=== PATIENT | female | born 1985 | race Caucasian/White ===

== ENCOUNTER 2021-01-02 08:22 | Emergency (ER) | payer OTHER, SELFPAY ==
[2021-01-02 08:26] VITALS: BP 129/86; PULSE 59; RESP 16; TEMP 36.5; O2SAT 93; BMI 28.0
--- NOTE | 2021-01-02 08:38 | W.ED.ABDPA2 ---
Documented by User: SHAHID Roth 01/02/21 13:23 HPI - Abdominal Pain General: Chief Complaint: Abdominal Pain Stated Complaint: LUQ ABD PAIN W/ N/V Time Seen by Provider: 01/02/21 08:31 Source: patient Mode of arrival: ambulatory Limitations: no limitations History of Present Illness: HPI narrative: Patient is a 35-year-old female who presents to ED today with a complaint of left-sided abdominal pain. Patient tells me she woke up around 530 this morning with pain and initially thought it could be secondary to her menstrual cycle however secondary to the amount of discomfort she knew it was not. Did have small amount of brown discharge. Reports abnormal cycles secondary to PCOS. She has felt nauseous and has had a few episodes of vomiting. She denies flank pain. She is not having any urinary symptoms. Reporting normal bowel movements. She states there is a chance of . Reports URI symptoms with low grade fevers over the past few days. Tested for COVID recently and was negative. Previous abdominal surgeries include a gastric sleeve performed in [facility]. MD elicited complaint: abdominal pain Pertinent past history: none Onset (ago): hour(s) Pain Consistency: constant Location: LUQ and LLQ Severity: severe Quality: sharp Relieving factors: other (lying flat) Associated Symptoms: Reports fever(s), nausea and vomiting; Denies change in stool character, chills, diarrhea and dysuria Treatments prior to arrival: other (tylenol) Review of Systems Const: Reports: fever(s); Denies: chills, body aches, fatigue or malaise Card: Denies: chest pain Resp: Denies: dyspnea GI: Reports: abdominal pain, nausea and vomiting; Denies: diarrhea or change in stool character : Denies: flank pain, difficulty voiding, dysuria, urinary frequency or urinary urgency Musc: Denies: neck pain, back pain, extremity pain or joint pain Skin/Breast: Denies: rash Neuro: Denies: headache(s) PFS ED PFSH: Medical History PCOS (polycystic ovarian syndrome) Surgical History Bariatric surgery status Family History Father Healthy adult Mother Healthy adult Social History Smoking and tobacco status: current some day smoker Alcohol intake: never Marital status: Current occupational status: employed History of recent travel: No Physical Exam Const: COMMON NORMALS: no acute distress, patient oriented x3, no limitations and alert GENERAL APPEARANCE: cooperative ORIENTATION/CONSCIOUSNESS: Yes awake, Yes oriented to person, Yes oriented to place and Yes oriented to time HENMT: COMMON NORMALS: normocephalic and atraumatic HEAD & SCALP: normocephalic and atraumatic Resp: COMMON NORMALS: normal respiratory effort and clear to auscultation bilaterally AUSCULTATION: clear to auscultation bilaterally Cardio: COMMON NORMALS: regular rate and regular rhythm RATE: regular rate RHYTHM: regular rhythm GI: COMMON NORMALS: Normal to inspection, nondistended, normoactive bowel sounds present, Soft to palpation, No hepatosplenomegaly present and no masses INSPECTION: Yes normal to inspection AUSCULTATION: Yes normoactive bowel sounds PALPATION: Yes Soft to palpation, Yes Tenderness to palpation present (GI) (L mid abdomen/LLQ), No Guarding due to palpation present (GI), No Rigid due to palpation and Yes No hepatosplenomegaly present : COMMON NORMALS: Yes no CVA tenderness BLADDER/KIDNEY EXAM: Yes no CVA tenderness Back/Pelvis: COMMON NORMALS: no CVA tenderness Extremity: COMMON NORMALS: normal to inspection Neuro: COMMON NORMALS: patient oriented x3 SENSORIUM/ORIENTATION: Yes alert, Yes oriented to person, Yes oriented to place and Yes oriented to time Skin: COMMON NORMALS: no rashes or lesions noted GENERAL SKIN EXAM: no rashes or lesions noted Course Consultations: Consultation #1: Dr. Shanae POPE (risk of ovarian malignancy algorithm); stated torsion can be ruled out; she would follow patient in office Vital Signs: Vital signs: Vital Signs Temperature 97.7 F 01/02/21 09:16 Pulse Rate 71 01/02/21 12:16 Respiratory Rate 16 01/02/21 12:16 Blood Pressure 118/91 01/02/21 12:16 Pulse Oximetry 94 01/02/21 12:16 MDM - Abdominal Pain MDM Narrative: Medical decision making narrative: Patient was found to have a 2 mm left distal ureter stone that would explain her acute onset left-sided discomfort. UA showing hematuria but no infection. Vital signs are stable. Pain was difficult to initially control with IV narcotic pain medications while we awaited CT findings/US pelvis. She was eventually given IV toradol with good relief of pain. US pelvis showing a very large right adnexa mass. There was no definitive vascularity seen therefore torsion could not entirely be excluded. Patient has absolutely no pain to her right side. CT imaging confirms the very large mass. Radiologist stated there was no secondary findings of torsion. Her pedicle was not twisted. This was discussed with Dr. Akbar who stated torsion could be ruled out with these findings and her absence of pain. She did request a miscellaneous test (NIKO) and she would follow up with patient in office. Patient will be placed on pain meds, nausea meds, Flomax for the distal ureter stone. We will have case management get her set up with urology regarding this. Strict return to ED precautions given. Lab Data: Labs: Lab Results 01/02/21 01/02/21 01/02/21 08:45 08:45 09:05 WBC 9.4 10^3/uL 10^3/ uL (4.0-10.0) RBC 5.03 10^6/uL 10^6 /uL (4.1-5.3) Hgb 15.6 g/dL H g/dL (11.5-15.3) Hct 47.6 % H % (37.0-47.0) MCV 94.6 fl fl (81-99) MCH 31.0 pg pg (28.0-34.0) MCHC 32.8 g/dL g/dL (30.0-36.0) RDW 12.4 % % (12.1-15.1) Plt Count 265 10^3/cmm 10^3 /cmm (130-400) MPV 10.2 fL fL (7.4-10.4) Neut % (Auto) 70.2 % % Lymph % (Auto) 20.7 % % [place] % (Auto) 6.5 % % Eos % (Auto) 1.1 % % Baso % (Auto) 0.5 % % Neut # (Auto) 6.60 10^3/uL 10^3 /uL (1.8-7.7) Lymph # (Auto) 1.9 10^3/uL 10^3/ uL (0.8-4.8) [place] # (Auto) 0.6 10^3/uL 10^3/ uL (0.2-0.9) Eos # (Auto) 0.1 10^3/uL 10^3/ uL (0.0-0.8) Baso # (Auto) 0.1 10^3/uL 10^3/ uL (0.0-0.1) Nucleated RBC % (a uto) 0 % % Nucleated RBCs # 0.0 /100WBC /100W BC Sodium Potassium Chloride Carbon Dioxide Anion Gap BUN Creatinine GFR Calculation Glucose Calculated Osmolal ity Calcium Total Bilirubin AST ALT Alkaline Phosphata se Total Protein Albumin Globulin Lipase HCG, Qual Urine Color Yellow (Yellow) Urine Appearance Clear (CLEAR) Urine pH 5 (5-7) Ur Specific Gravit y 1.025 (1.005-1.030) Urine Protein Trace (Negative) Urine Glucose (UA) Norm (Normal) Urine Ketones 1+ H (Negative) Urine Blood 3+ H (Negative) Urine Nitrate Negative (Negative) Urine Bilirubin 1+ H (Negative) Urine Urobilinogen 1 mg/dL H mg/dL (Negative) Ur Leukocyte Eladia ase Negative (Negative) Urine RBC 0-4 /hpf H /hpf (0-2) Urine WBC 0-4 /hpf H /hpf (0-5) Ur Squamous Epith Cells 0-4 /hpf H /hpf (0-5) Amorphous Sediment Not Reportable Urine Bacteria 1+ /hpf H /hpf (NONE) Urine Mucus Trace /hpf /hpf Urine HCG, Qual Negative (Negative) 01/02/21 01/02/21 09:05 09:05 WBC RBC Hgb Hct MCV MCH MCHC RDW Plt Count MPV Neut % (Auto) Lymph % (Auto) [place] % (Auto) Eos % (Auto) Baso % (Auto) Neut # (Auto) Lymph # (Auto) [place] # (Auto) Eos # (Auto) Baso # (Auto) Nucleated RBC % (a uto) Nucleated RBCs # Sodium 140 mmol/L mmol/L (136-145) Potassium 3.6 mmol/L mmol/L (3.5-5.1) Chloride 102 mmol/L mmol/L (98-107) Carbon Dioxide 25 mmol/L mmol/L (22-29) Anion Gap 16.6 (5-19) BUN 7 mg/dL mg/dL (6-20) Creatinine 0.8 mg/dL mg/dL (0.5-0.9) GFR Calculation 82.6 mL/min L mL/ min (90-130) Glucose 103 mg/dL mg/dL (65-115) Calculated Osmolal ity 288 mOsm/kg mOsm/ kg (285-295) Calcium 9.3 mg/dL mg/dL (8.5-10.5) Total Bilirubin 0.3 mg/dL mg/dL (0.15-1.2) AST 21 U/L U/L (0-32) ALT 20 U/L U/L (0-33) Alkaline Phosphata se 67 IU/L IU/L (35-105) Total Protein 8.2 g/dL g/dL (6.6-8.7) Albumin 4.4 g/dL g/dL (3.5-5.2) Globulin 3.8 g/dL g/dL (1.3-4.6) Lipase 18 U/L U/L (13-60) HCG, Qual Cancelled Urine Color Urine Appearance Urine pH Ur Specific Gravit y Urine Protein Urine Glucose (UA) Urine Ketones Urine Blood Urine Nitrate Urine Bilirubin Urine Urobilinogen Ur Leukocyte Eladia ase Urine RBC Urine WBC Ur Squamous Epith Cells Amorphous Sediment Urine Bacteria Urine Mucus Urine HCG, Qual Imaging Data ^: US pelvis: Radiologist's impression: [address] [id number] ReportSigned Patient: Josy Bautista JUnfrank #: [id number]: 1985Acct#:[id number]/Sex: 35 / FADM Date: 01/02/21Loc: ERRoom/Bed:Attending Dr: Ordering Provider/Ordering MD: Kacie Baca Date of Service: 01/02/21 Procedure(s): US pelvic with transvaginal Accession Number(s): [id number] Report Number: [id number] WS: [id number] TRANSABDOMINAL PELVIC AND TRANSVAGINAL PELVIC ULTRASOUND HISTORY: L lower pelvic pain; hx of PCOS COMPARISON: None available. Uterus: 8.2 cm x 5.0 cm x 4.4 cm. Normal size anteverted uterus. No fibroid or mass. Endometrium: 1.5 cm. Mildly thickened endometrium. Right ovary: 4.4 cm x 4.2 cm x 2.7 cm. Normal-appearing ovary is not identified. There are multiple cysts and complex cysts in the RIGHT adnexa. There is a very thin rim of what appears to be ovarian tissue. Cannot identify any vascularity. The largest complex cyst in the RIGHT adnexa measures 6.5 x 5.2 x 6.0 cm. Left ovary: 3.5 cm x 3.5 cm x 2.2 cm. Normal size ovary. There is normal vascularity. No free fluid. US/US pelvic with transvaginal IMPRESSION: 1. Multiple large complex cysts within the RIGHT adnexa with minimal ovarian tissue. No definite vascularity is identified within the ovarian tissue. Cannot exclude ovarian torsion although the ovary is not very well visualized. 2. Normal LEFT ovary. 3. No free fluid. Dictated By:Tori Granda DOSigned By:Tori Granda DOSigned Date/Time:01/02/21 1035DD/ 1029 CT Abd/Pel: Radiologist's impression: [address] [id number] Scan ReportSigned Patient: Josy Bautista #: [id number]: 1985Acct#:[id number]/Sex: 35 / FADM Date: 01/02/21Loc: ERRoom/Bed:Attending Dr: Ordering Provider/Ordering MD: Kacie Baca Date of Service: 01/02/21 Procedure(s): CT abdomen pelvis w con* [id number] Accession Number(s): [id number] Report Number: [id number] WS: [id number] CT ABDOMEN AND PELVIS WITH CONTRAST HISTORY: L sided abdominal pain TECHNIQUE: Imaging performed of the abdomen and pelvis with IV contrast. Single phase imaging of the abdomen. Coronal and sagittal reformats are submitted. All CT scans at [facility] use at least one of these dose optimization techniques: automated exposure control; mA and/or kV adjustment per patient size (includes targeted exams where dose is matched to clinical indication); or iterative reconstruction. IV CONTRAST: Omnipaque 350; 95 mL IV. Oral contrast: No DLP: 3612.26 mGy.cm COMPARISON: Pelvic ultrasound 01/02/2021 Lower thorax: Lung bases are clear. Heart is normal size. Moderate-sized hiatal hernia. Prior gastric bypass. Liver/biliary system: Normal size with no intrahepatic dilatation. Gallbladder: Status post cholecystectomy. Pancreas: Normal size pancreas and pancreatic duct. No adjacent inflammation. Spleen: Normal size spleen. No mass or infarct. Adrenal glands: Normal. Right kidney: Normal. Left kidney: Delayed excretion from the LEFT kidney. There is very mild dilatation of the LEFT renal pelvis and ureter secondary to a 2 mm stone in the distal ureter. Aorta: Normal. Lymphadenopathy: None. Free fluid: None. GI tract: Normal appendix. No obstruction. Abdominal wall: Unremarkable abdominal wall. No hernia. Pelvis: There is a very large multi lobulated cystic mass in the RIGHT adnexa extending across the midline posterior to the uterus. This collection measures 9.2 x 6.0 x 8.1 cm. There are several septations but no adjacent free fluid or inflammation. Small amount of the normal ovary is identified. There is enhancement within the wall. No secondary findings of torsion. The pedicle is not twisted. Normal endometrium. Normal LEFT ovary. Bones: Unremarkable. CT/CT abdomen pelvis w con* [id number] IMPRESSION: 1. Mild delayed excretion from the LEFT kidney with mild LEFT hydroureteronephrosis. There is a 2 mm calcification in the distal LEFT ureter causing the obstruction. 2. Large complex cystic mass in the RIGHT adnexa crossing the midline posterior to the uterus. This multi cystic collection associated with the ovary measures 9.2 x 6.0 x 8.1 cm. No adjacent free fluid. There is no torsion at this time. 3. Moderate size hiatal hernia. Dictated By:Tori Granda DOSigned By:Tori Granda DOSigned Date/Time:01/02/21 1052DD/ 1036 Discharge Plan Discharge Patient Disposition: Home Clinical Impression: Calculus of distal left ureter, Complex cyst of right ovary Condition: Stable Prescriptions: New Zofran 4 mg tablet 4 mg PO Q6H PRN (Reason: nausea and vomiting) Qty: 14 RF: 0 Flomax 0.4 mg capsule 0.4 mg PO DAILY Qty: 10 RF: 0 hydrocodone-acetaminophen 7.5-325 mg tablet 1 tab PO Q4H PRN (Reason: pain) Qty: 20 RF: 0 ketorolac 10 mg tablet 10 mg PO Q6H PRN (Reason: pain) 3 Days Qty: 12 RF: 0 Discharge Orders: Discharge ED (Routine); Ordered 01/02/21 Ordered By: Kacie Baca Patient Instructions: Ureteral Stones (ED), Opioid Safety Activity Restrictions/Additional Instructions: [facility] is committed to fighting the nationwide opiate epidemic. We are providing ALL patients with information regarding opiate safety. If you received opiate pain medication during your stay or if you received a prescription for opiate pain medication-please review this handout. If not, you may disregard. Thank you. As we discussed take your pain meds as scheduled to attempt to stay ahead of your discomfort. Take nausea meds as scheduled as well as the pain medication can contribute to this. Push fluids throughout the day. Strain urine. Case management will set you up with Dr. Radford's/urology office for follow-up regarding your ureter stone. As we discussed they will also set you up with Dr. Akbar at [facility] for the right ovarian cystic mass that was found. You need to return to the emergency department if pain cannot be controlled at home, repetitive episodes of vomiting, fevers greater than 100.4, or any other concerns you may have. I hope you begin to feel better soon. Coding Level of Care Code ED Water System Operator for Chg Fwd Exam Comprehensive Documented by User: Kaveh Mac DO 01/03/21 10:08 HPI - Abdominal Pain General: Chief Complaint: Abdominal Pain Stated Complaint: LUQ ABD PAIN W/ N/V Time Seen by Provider: 01/02/21 08:31 [facility] ED PFSH: Medical History PCOS (polycystic ovarian syndrome) Surgical History Bariatric surgery status Family History Father Healthy adult Mother Healthy adult Social History Smoking and tobacco status: current some day smoker Alcohol intake: never Marital status: Current occupational status: employed History of recent travel: No Course Vital Signs: Vital signs: Vital Signs Temperature 97.7 F 01/02/21 09:16 Pulse Rate 71 01/02/21 12:16 Respiratory Rate 16 01/02/21 12:16 Blood Pressure 118/91 01/02/21 12:16 Pulse Oximetry 94 01/02/21 12:16 MDM - Abdominal Pain MDM Narrative: Medical decision making narrative: Chart reviewed and patient discussed with midlevel. Agree with assessment and plan. Lab Data: Labs: Lab Results 01/02/21 01/02/21 01/02/21 08:45 08:45 09:05 WBC 9.4 10^3/uL 10^3/ uL (4.0-10.0) RBC 5.03 10^6/uL 10^6 /uL (4.1-5.3) Hgb 15.6 g/dL H g/dL (11.5-15.3) Hct 47.6 % H % (37.0-47.0) MCV 94.6 fl fl (81-99) MCH 31.0 pg pg (28.0-34.0) MCHC 32.8 g/dL g/dL (30.0-36.0) RDW 12.4 % % (12.1-15.1) Plt Count 265 10^3/cmm 10^3 /cmm (130-400) MPV 10.2 fL fL (7.4-10.4) Neut % (Auto) 70.2 % % Lymph % (Auto) 20.7 % % [place] % (Auto) 6.5 % % Eos % (Auto) 1.1 % % Baso % (Auto) 0.5 % % Neut # (Auto) 6.60 10^3/uL 10^3 /uL (1.8-7.7) Lymph # (Auto) 1.9 10^3/uL 10^3/ uL (0.8-4.8) [place] # (Auto) 0.6 10^3/uL 10^3/ uL (0.2-0.9) Eos # (Auto) 0.1 10^3/uL 10^3/ uL (0.0-0.8) Baso # (Auto) 0.1 10^3/uL 10^3/ uL (0.0-0.1) Nucleated RBC % (a uto) 0 % % Nucleated RBCs # 0.0 /100WBC /100W BC Sodium Potassium Chloride Carbon Dioxide Anion Gap BUN Creatinine GFR Calculation Glucose Calculated Osmolal ity Calcium Total Bilirubin AST ALT Alkaline Phosphata se Total Protein Albumin Globulin Lipase HCG, Qual Urine Color Yellow (Yellow) Urine Appearance Clear (CLEAR) Urine pH 5 (5-7) Ur Specific Gravit y 1.025 (1.005-1.030) Urine Protein Trace (Negative) Urine Glucose (UA) Norm (Normal) Urine Ketones 1+ H (Negative) Urine Blood 3+ H (Negative) Urine Nitrate Negative (Negative) Urine Bilirubin 1+ H (Negative) Urine Urobilinogen 1 mg/dL H mg/dL (Negative) Ur Leukocyte Eladia ase Negative (Negative) Urine RBC 0-4 /hpf H /hpf (0-2) Urine WBC 0-4 /hpf H /hpf (0-5) Ur Squamous Epith Cells 0-4 /hpf H /hpf (0-5) Amorphous Sediment Not Reportable Urine Bacteria 1+ /hpf H /hpf (NONE) Urine Mucus Trace /hpf /hpf Urine HCG, Qual Negative (Negative) 01/02/21 01/02/21 09:05 09:05 WBC RBC Hgb Hct MCV MCH MCHC RDW Plt Count MPV Neut % (Auto) Lymph % (Auto) [place] % (Auto) Eos % (Auto) Baso % (Auto) Neut # (Auto) Lymph # (Auto) [place] # (Auto) Eos # (Auto) Baso # (Auto) Nucleated RBC % (a uto) Nucleated RBCs # Sodium 140 mmol/L mmol/L (136-145) Potassium 3.6 mmol/L mmol/L (3.5-5.1) Chloride 102 mmol/L mmol/L (98-107) Carbon Dioxide 25 mmol/L mmol/L (22-29) Anion Gap 16.6 (5-19) BUN 7 mg/dL mg/dL (6-20) Creatinine 0.8 mg/dL mg/dL (0.5-0.9) GFR Calculation 82.6 mL/min L mL/ min (90-130) Glucose 103 mg/dL mg/dL (65-115) Calculated Osmolal ity 288 mOsm/kg mOsm/ kg (285-295) Calcium 9.3 mg/dL mg/dL (8.5-10.5) Total Bilirubin 0.3 mg/dL mg/dL (0.15-1.2) AST 21 U/L U/L (0-32) ALT 20 U/L U/L (0-33) Alkaline Phosphata se 67 IU/L IU/L (35-105) Total Protein 8.2 g/dL g/dL (6.6-8.7) Albumin 4.4 g/dL g/dL (3.5-5.2) Globulin 3.8 g/dL g/dL (1.3-4.6) Lipase 18 U/L U/L (13-60) HCG, Qual Cancelled Urine Color Urine Appearance Urine pH Ur Specific Gravit y Urine Protein Urine Glucose (UA) Urine Ketones Urine Blood Urine Nitrate Urine Bilirubin Urine Urobilinogen Ur Leukocyte Eldaia ase Urine RBC Urine WBC Ur Squamous Epith Cells Amorphous Sediment Urine Bacteria Urine Mucus Urine HCG, Qual Discharge Plan Discharge Patient Disposition: Home Clinical Impression: Calculus of distal left ureter, Complex cyst of right ovary Condition: Stable Prescriptions: New Zofran 4 mg tablet 4 mg PO Q6H PRN (Reason: nausea and vomiting) Qty: 14 RF: 0 Flomax 0.4 mg capsule 0.4 mg PO DAILY Qty: 10 RF: 0 hydrocodone-acetaminophen 7.5-325 mg tablet 1 tab PO Q4H PRN (Reason: pain) Qty: 20 RF: 0 ketorolac 10 mg tablet 10 mg PO Q6H PRN (Reason: pain) 3 Days Qty: 12 RF: 0 Discharge Orders: Discharge ED (Routine); Ordered 01/02/21 Ordered By: Kacie Baca Patient Instructions: Ureteral Stones (ED), Opioid Safety Activity Restrictions/Additional Instructions: [facility] is committed to fighting the nationwide opiate epidemic. We are providing ALL patients with information regarding opiate safety. If you received opiate pain medication during your stay or if you received a prescription for opiate pain medication-please review this handout. If not, you may disregard. Thank you. As we discussed take your pain meds as scheduled to attempt to stay ahead of your discomfort. Take nausea meds as scheduled as well as the pain medication can contribute to this. Push fluids throughout the day. Strain urine. Case management will set you up with Dr. Radford's/urology office for follow-up regarding your ureter stone. As we discussed they will also set you up with Dr. Akbar at [facility] for the right ovarian cystic mass that was found. You need to return to the emergency department if pain cannot be controlled at home, repetitive episodes of vomiting, fevers greater than 100.4, or any other concerns you may have. I hope you begin to feel better soon. Coding Level of Care Code ED Water System Operator for [place] Fwstu Exam Comprehensive
[2021-01-02] MEDS: ondansetron 2 mg/ML SDV 2 mL 4 MG IVP (09:08)
[2021-01-02 09:09] LABS: Add Urine Microscopic? YES; Bilirubin Urine 1+ (Negative); Blood Urine 3+ (Negative); Glucose Urine UA Norm (Normal); Ketones Urine 1+ (Negative); Leukocyte Esterase Urine Negative (Negative); Nitrate Urine Negative (Negative); Protein Urine Trace (Negative); Specific Gravity, Urine 1.025 (1.005-1.030); Urine Appearance Clear (CLEAR); Urine Color Yellow (Yellow); Urobilinogen Urine 1 mg/dL (Negative); pH Urine 5 (5-7)
[2021-01-02 09:10] VITALS: RESP 18; O2SAT 99
[2021-01-02] MEDS: morphine 4 mg/mL SDV 1 mL IVP (09:10)
[2021-01-02 09:16] VITALS: BP 143/88; PULSE 51; RESP 17; TEMP 36.5; O2SAT 91
[2021-01-02 09:17] LABS: Add Urine Culture? No; Bacteria Urine 1+ /hpf; Mucus Urine TRACE /hpf; RBC Urine 0-4 /hpf (0-2); Squamous Epithelial Cell Urine 0-4 /hpf (0-5); WBC Urine 0-4 /hpf (0-5)
--- NOTE | 2021-01-02 09:17 | CT_ITS ---
WS: [id number] CT ABDOMEN AND PELVIS WITH CONTRAST HISTORY: L sided abdominal pain TECHNIQUE: Imaging performed of the abdomen and pelvis with IV contrast. Single phase imaging of the abdomen. Coronal and sagittal reformats are submitted. All CT scans at [facility] use at [facility] one of these dose optimization techniques: automated exposure control; mA and/or kV adjustment per patient size (includes targeted exams where dose is matched to clinical indication); or iterative re construction. IV CONTRAST: Omnipaque 350; 95 mL IV. Oral contrast: No DLP: 3612.26 mGy.cm COMPARISON: Pelvic ultrasound 01/02/2021 Lower thorax: Lung bases are clear. Heart is normal size. Moderate-sized hiatal hernia. Prior gastric bypass. Liver/biliary system: Normal size with no intrahepatic dilatation. Gallbladder: Status post cholecystectomy. Pancreas: Normal size pancreas and pancreatic duct. No adjacent inflammation. Spleen: Normal size spleen. No mass or infarct. Adrenal glands: Normal. Right kidney: Normal. Left kidney: Delayed excretion from the LEFT kidney. There is very mild dilatation of the LEFT renal pelvis and ureter secondary to a 2 mm stone in the distal ureter. Aorta: Normal. Lymphadenopathy: None. Free fluid: None. GI tract: Normal appendix. No obstruction. Abdominal wall: Unremarkable abdominal wall. No hernia. Pelvis: There is a very large multi lobulated cystic mass in the RIGHT adnexa extending across the mi dline posterior to the uterus. This collection measures 9.2 x 6.0 x 8.1 cm. There are several septati ons but no adjacent free fluid or inflammation. Small amount of the normal ovary is identified. There is enhancement within the wall. No secondary findings of torsion. The pedicle is not twisted. Normal endometrium. Normal LEFT ovary. Bones: Unremarkable. CT/CT abdomen pelvis w con* [id number] IMPRESSION: 1. Mild delayed excretion from the LEFT kidney with mild LEFT hydroureteroneph rosis. There is a 2 mm calcification in the distal LEFT ureter causing the obst ruction. 2. Large complex cystic mass in the RIGHT adnexa crossing the midline posterio r to the uterus. This multi cystic collection associated with the ovary measure s 9.2 x 6.0 x 8.1 cm. No adjacent free fluid. There is no torsion at this time. 3. Moderate size hiatal hernia.
[2021-01-02 09:19] LABS: Basophils # 0.1 10^3/uL (0.0-0.1); Basophils % 0.5 %; Eosinophils # 0.1 10^3/uL (0.0-0.8); Eosinophils % 1.1 %; Hematocrit 47.6 % (37.0-47.0); Hemoglobin 15.6 g/dL (11.5-15.3); Lymphocytes # 1.9 10^3/uL (0.8-4.8); Lymphocytes % 20.7 %; Mean Corpuscular HGB Conc 32.8 g/dL (30.0-36.0); Mean Corpuscular Volume 94.6 fl (81-99); Mean Platelet Volume 10.2 fL (7.4-10.4); Monocytes # 0.6 10^3/uL (0.2-0.9); Monocytes % 6.5 %; Neutrophils % 70.2 %; Nucleated Red Blood Cells % 0 %; Platelet Count 265 10^3/cmm (130-400); Red Blood Count 5.03 10^6/uL (4.1-5.3); Red Cell Distribution Width 12.4 % (12.1-15.1); White Blood Count 9.4 10^3/uL (4.0-10.0)
--- NOTE | 2021-01-02 09:20 | US_ITS ---
WS: [id number] TRANSABDOMINAL PELVIC AND TRANSVAGINAL PELVIC ULTRASOUND HISTORY: L lower pelvic pain; hx of PCOS COMPARISON: None available. Uterus: 8.2 cm x 5.0 cm x 4.4 cm. Normal size anteverted uterus. No fibroid or mass. Endometrium: 1.5 cm. Mildly thickened endometrium. Right ovary: 4.4 cm x 4.2 cm x 2.7 cm. Normal-appearing ovary is not identified. There are multiple c ysts and complex cysts in the RIGHT adnexa. There is a very thin rim of what appears to be ovarian ti ssue. Cannot identify any vascularity. The largest complex cyst in the RIGHT adnexa measures 6.5 x 5. 2 x 6.0 cm. Left ovary: 3.5 cm x 3.5 cm x 2.2 cm. Normal size ovary. There is normal vascularity. No free fluid. US/US pelvic with transvaginal IMPRESSION: 1. Multiple large complex cysts within the RIGHT adnexa with minimal ovarian t issue. No definite vascularity is identified within the ovarian tissue. Cannot exclude ovarian torsion although the ovary is not very well visualized. 2. Normal LEFT ovary. 3. No free fluid.
[2021-01-02 09:36] LABS: Alanine Aminotransferase 20 U/L (0-33); Albumin Level 4.4 g/dL (3.5-5.2); Alkaline Phosphatase 67 IU/L (35-105); Anion Gap 16.6 (5-19); Aspartate Amino Transferase 21 U/L (0-32); Blood Urea Nitrogen 7 mg/dL (6-20); Calcium 9.3 mg/dL (8.5-10.5); Carbon Dioxide 25 mmol/L (22-29); Chloride 102 mmol/L (98-107); Creatinine Clr Calc Pharmacy 117.1505; Globulin 3.8 g/dL (1.3-4.6); Glomerular Filtration Rate 82.6 mL/min (90-130); Glucose 103 mg/dL (65-115); Lipase 18 U/L (13-60); Osmolality Calculated 288 mOsm/kg (285-295); Potassium 3.6 mmol/L (3.5-5.1); Sodium 140 mmol/L (136-145); Total Bilirubin 0.3 mg/dL (0.15-1.2); Total Protein 8.2 g/dL (6.6-8.7)
[2021-01-02 09:49] VITALS: RESP 18; O2SAT 94
[2021-01-02] MEDS: HYDROmorphone 1 mg/mL INJ 1 mL 0.5 MG IVP (09:49)
--- NOTE | 2021-01-02 10:18 | PC.NURSE ---
Pt was placed on 2 liters nasal cannula due to O2 rated dropping in the 80's after pain meds.
[2021-01-02] MEDS: iohexol 350 mg/mL 100 mL Btl IV (10:36)
[2021-01-02] MEDS: metoclopramide 5 mg/mL SDV 2 mL 10 MG IVP (10:45)
[2021-01-02] MEDS: ketorolac 60 mg/2 mL INJ 30 MG IM (10:48)
[2021-01-02 10:50] VITALS: BP 139/96; PULSE 73; RESP 18; O2SAT 98
[2021-01-02] MEDS: sodium chloride 0.9% 1,000 ML 999 ML IV (12:15)
[2021-01-02 12:16] VITALS: BP 118/91; PULSE 71; RESP 16; O2SAT 94
--- NOTE | 2021-01-02 15:46 | DCPLANNER ---
investments manager had message to schedule a follow up appointment for patient with both Dr. Rizo office and [facility]. investments manager called the office of Dr. Radford, spoke with Laurie, gave clinic patients information. investments manager was told that patients information would be printed and reviewed. Clinic will call patient with appointment information. investments manager [facility], spoke with Rudy, gave clinic patients information. investments manager was told that patients information would be printed and reviewed. Clinic will call patient with appointment information.
--- NOTE | 2021-01-04 14:26 | DCPLANNER ---
Patient had a follow up appointment scheduled for 01.03.[address] Radford - patient did attend appointment. Patient has a follow up appointment scheduled for Monday, February 08, 2021 at 1:[address] Akbar at [facility]. Clinic will call patient with appointment information.
--- NOTE | 2021-02-15 11:46 | DCPLANNER ---
Patient had a follow up appointment scheduled for [facility].08.21 with [facility] - patient did not attend appointment.
== END 2021-01-02 12:18 | disposition home or self-care (01) ==
PROVIDERS: Emergency Provider Physician Assistant
DX: N20.1 Calculus of ureter (principal); N83.201 Unspecified ovarian cyst, right side; F17.200 Nicotine dependence, unspecified, uncomplicated
CPT/HCPCS: 74177; 76830; 76856; 80053; 81001; 81025; 81500; 83690; 85025; 93976; 96361; 96372; 96374; 96375; 99284; J1170; J1885; J2270; J2405; J2765; J7030; Q9967

== ENCOUNTER 2021-01-03 08:56 | Outpatient (CLI) | payer OTHER, SELFPAY ==
--- NOTE | 2021-01-03 09:00 | XR_ITS ---
WS: [id number], AP view, 01/03/2021 Clinical Data: STONE Comparison: CT abdomen and pelvis, 01/02/2021.. Findings: No abnormal intraabdominal masses or calcifications are seen. There is no dilatated small bowel or ev idence of obstruction. No true pelvic calcifications are seen. There are clips in the right upper quadrant from a cholecystectomy. There is a small surgical clip in the left upper quadrant. XR/XR KUB [id number] Impression: Negative KUB.
== END 2021-01-03 08:57 | disposition home or self-care (01) ==
LOC: RAD 08:57
PROVIDERS: PCP Urology; Visit Provider Urology
DX: N20.1 Calculus of ureter (principal)
CPT/HCPCS: 74018; 81003

== ENCOUNTER → 2021-09-03 16:30 | Outpatient (BNVA) | payer OTHER, SELFPAY | PROVIDERS: PCP Urology; Visit Provider Nurse Practitioner | DX: E28.2 Polycystic ovarian syndrome (principal); Z30.018 Encounter for initial prescription of other contraceptives; Z68.32 Body mass index [BMI] 32.0-32.9, adult | CPT/HCPCS: 81025 ==

== ENCOUNTER → 2022-08-14 11:53 | Outpatient (BNVA) | payer OTHER, SELFPAY | PROVIDERS: PCP Urology; Visit Provider Nurse Practitioner Family | DX: Z13.220 Encounter for screening for lipoid disorders (principal); E66.9 Obesity, unspecified; E28.2 Polycystic ovarian syndrome; Z13.1 Encounter for screening for diabetes mellitus; L68.0 Hirsutism | CPT/HCPCS: 80053; 80061; 83036; 85007 ==

== ENCOUNTER → 2023-09-15 08:25 | Outpatient (BNVA) | payer SELFPAY | PROVIDERS: PCP Urology; Visit Provider Nurse Practitioner Family | DX: F41.9 Anxiety disorder, unspecified (principal); F32.A Depression, unspecified; E28.2 Polycystic ovarian syndrome | CPT/HCPCS: 80053; 80061; 84443; 85025 ==